=== PATIENT | male | born 2000 | race Caucasian/White ===

== ENCOUNTER 2018-02-23 13:29 | Emergency (ER) | payer SELFPAY | END 2018-02-23 15:41 | disposition home or self-care (01) | LOC: E/R 13:29 | DX: S63.613A Unspecified sprain of left middle finger, initial encounter (principal); W18.39XA Other fall on same level, initial encounter; Y92.9 Unspecified place or not applicable | CPT/HCPCS: 29130; 73130-LT; 99283-25 ==